=== PATIENT | female | born 1975 ===

== ENCOUNTER 2021-05-01 09:31 | Emergency (ER) | payer BC ==
--- NOTE | 2021-05-01 10:04 | EDM.PDOC ---
ED HPI GENERAL MEDICAL PROBLEM - General Chief Complaint: General Stated Complaint: TINGLING IN HANDS AND FEET Time Seen by Provider: 05/01/21 09:35 Source of Information: Reports: Patient History Limitations: Reports: No Limitations - History of Present Illness INITIAL COMMENTS - FREE TEXT/NARRATIVE: Patient is a 46-year-old female presents today for tingling to her hands and feet. Pain states started yesterday. Patient states that she gets a sensation in her feet are tingling and when she puts her shoes on feels like there is some irritation there as well she states that the tingling goes up to her knee and both legs. Patient also states that sometimes walking makes it better and it hold her legs up in the air makes it worse. She has the same tingling to her hands up to her mid forearms of both arms nothing makes this better and or worse. Patient denies any vision changes speech changes mental status changes fever chills or nausea or vomiting. Patient denies any submental use or any other complaints. - Related Data Allergies Allergy/AdvReac Type Severity Reaction Status Date / Time No Known Allergies Allergy Verified 05/01/21 09:53 Home Meds: Home Meds . [No Known Home Meds] 10/24/17 [History] Past Medical History - Past Health History Medical/Surgical History: Denies Medical/Surgical History - Infectious Disease History Infectious Disease History: Reports: None Social & Family History - Tobacco Use Tobacco Use Status *Q: Never Tobacco User - Caffeine Use Caffeine Use: Reports: None - Recreational Drug Use Recreational Drug Use: No ED ROS GENERAL - Review of Systems Review Of Systems: See Below Constitutional: Reports: No Symptoms HEENT: Reports: No Symptoms Respiratory: Reports: No Symptoms Cardiovascular: Reports: No Symptoms Endocrine: Reports: No Symptoms GI/Abdominal: Reports: No Symptoms : Reports: No Symptoms Musculoskeletal: Reports: No Symptoms Skin: Reports: No Symptoms Neurological: Reports: Tingling Psychiatric: Reports: No Symptoms Hematologic/Lymphatic: Reports: No Symptoms Immunologic: Reports: No Symptoms ED EXAM, GENERAL - Physical Exam Exam: See Below Exam Limited By: No Limitations General Appearance: Alert, WD/WN, No Apparent Distress Head: Atraumatic Respiratory/Chest: No Respiratory Distress, Lungs Clear, Normal Breath Sounds Cardiovascular: Normal Peripheral Pulses, Regular Rate, Rhythm GI/Abdominal: Normal Bowel Sounds, Soft, Non-Tender Back Exam: Normal Inspection Extremities: Normal Inspection, Normal Range of Motion Neurological: Alert, Oriented, CN II-XII Intact, Normal Cognition, Normal Gait, No Motor/Sensory Deficits Skin Exam: No Rash Course - Vital Signs Last Recorded V/S: Last Vital Signs Temp 97.2 F 05/01/21 09:53 Pulse 70 05/01/21 09:53 Resp 16 05/01/21 09:53 BP 117/76 05/01/21 09:53 Pulse Ox 96 05/01/21 09:53 - Orders/Labs/Meds Labs: Laboratory Tests 05/01/21 05/01/21 Range/Units 10:09 10:09 WBC 8.72 (4.0-11.0) K/uL RBC 4.86 (4.30-5.90) M/uL Hgb 13.1 (12.0-16.0) g/dL Hct 40.0 (36.0-46.0) % MCV 82.3 (80.0-98.0) fL MCH 27.0 (27.0-32.0) pg MCHC 32.8 (31.0-37.0) g/dL RDW Std Deviation 38.9 (28.0-62.0) fl RDW Coeff of Catarino 13 (11.0-15.0) % Plt Count 254 (150-400) K/uL MPV 10.10 (7.40-12.00) fL Neut % (Auto) 56.5 (48.0-80.0) % Lymph % (Auto) 33.4 (16.0-40.0) % [place] % (Auto) 8.5 (0.0-15.0) % Eos % (Auto) 1.4 (0.0-7.0) % Baso % (Auto) 0.2 (0.0-1.5) % Neut # (Auto) 4.9 (1.4-5.7) K/uL Lymph # (Auto) 2.9 H (0.6-2.4) K/uL [place] # (Auto) 0.7 (0.0-0.8) K/uL Eos # (Auto) 0.1 (0.0-0.7) K/uL Baso # (Auto) 0.0 (0.0-0.1) K/uL Sodium 140 (136-145) mmol/L Potassium 4.1 (3.5-5.1) mmol/L Chloride 105 (98-107) mmol/L Carbon Dioxide 27.4 (21.0-32.0) mmol/L BUN 12 (7.0-18.0) mg/dL Creatinine 0.7 (0.6-1.0) mg/dL Est Cr Clr Drug Dosing 107.18 mL/min Estimated GFR (MDRD) > 60.0 ml/min Glucose 83 (74-106) mg/dL Calcium 8.5 (8.5-10.1) mg/dL Phosphorus 3.5 (2.6-4.7) mg/dL Magnesium 1.7 L (1.8-2.4) mg/dL Total Bilirubin 0.6 (0.2-1.0) mg/dL AST 21 (15-37) IU/L ALT 29 (14-63) IU/L Alkaline Phosphatase 93 (46-116) U/L Creatine Kinase 49 (26-308) U/L Total Protein 7.2 (6.4-8.2) g/dL Albumin 3.5 (3.4-5.0) g/dL Globulin 3.7 (2.6-4.0) g/dL Albumin/Globulin Ratio 0.9 (0.9-1.6) - Re-Assessments/Exams Free Text/Narrative Re-Assessment/Exam: 05/01/21 10:55 Electrolytes within normal limits does have a magnesium 1.7 but normal is 1.8. Unclear cause of patient's tingling to her extremities. Patient again has good pulses good warm to extremities. Will have patient follow-up with primary care and possible neurology for the sensation. Departure - Departure Time of Disposition: 10:56 Disposition: Home, Self-Care 01 Condition: Good Clinical Impression: Neuropathy - Discharge Information *PRESCRIPTION DRUG MONITORING PROGRAM REVIEWED*: Not Applicable *COPY OF PRESCRIPTION DRUG MONITORING REPORT IN PATIENT YOANA: Not Applicable Instructions: Peripheral Neuropathy Referrals: PCP,Not In Area [Primary Care Provider] - Forms: ED Department Discharge Additional Instructions: The following information is given to patients seen in the emergency department who are being discharged to home. This information is to outline your options for follow-up care. We provide all patients seen in our emergency department with a follow-up referral. The need for follow-up, as well as the timing and circumstances, are variable depending upon the specifics of your emergency department visit. If you don't have a primary care physician on staff, we will provide you with a referral. We always advise you to contact your personal physician following an emergency department visit to inform them of the circumstance of the visit and for follow-up with them and/or the need for any referrals to a consulting specialist. The emergency department will also refer you to a specialist when appropriate. This referral assures that you have the opportunity for follow-up care with a specialist. All of these measure are taken in an effort to provide you with optimal care, which includes your follow-up. Under all circumstances we always encourage you to contact your private physician who remains a resource for coordinating your care. When calling for follow-up care, please make the office aware that this follow-up is from your recent emergency room visit. If for any reason you are refused follow-up, please contact the [facility] Emergency Department at and asked to speak to the emergency department charge nurse. Please follow up with your primary care physician. If you do not have a primary care physician, see below: [facility] [address] [place] [id number] My [facility] [address] [place] [id number] You were seen today for tingling sensation to your legs and arms. Again this is not follow a pattern of any strokes and is likely to be some peripheral neuropathy that you are experiencing. It is unclear why you are having this at this moment. We did labs and your electrolytes were within normal limits and you are not a diabetic. What we can recommend is that you please follow-up with your primary care physician for further testing. If you have any other concerning signs or symptoms please return to the ED. Sepsis Event Note (ED) - Evaluation Sepsis Screening Result: No Definite Risk - Focused Exam Vital Signs: Vital Signs Temp Pulse Resp BP Pulse Ox 05/01/21 09:53 97.2 F 70 16 117/76 96 - Assessment/Plan Plan: Patient is a 46-year-old female who presents today for tingling to bilateral lower and upper extremities. This thing does not follow any dermatome distrib ution. Patient has good pulses bilateral upper and lower extremities. There is no signs of rashes. We will obtain basic labs looking for any electrolyte abnormalities and reassess patient.
[2021-05-01 10:49] LABS: BLOOD UREA NITROGEN,BUN 12 mg/dL (7.0-18.0); CARBON DIOXIDE,CO2 27.4 mmol/L (21.0-32.0); CHLORIDE,CL 105 mmol/L (98-107); GLUCOSE RANDOM 83 mg/dL (74-106); POTASSIUM,K 4.1 mmol/L (3.5-5.1); SODIUM,NA 140 mmol/L (136-145)
== END 2021-05-01 11:29 | disposition home or self-care (01) ==
LOC: MW.ED 09:31
DX: G62.9 Polyneuropathy, unspecified (principal)
CPT/HCPCS: 36415; 80053; 82550; 83735; 84100; 85025; 99284